=== PATIENT | male | born 1970 | race Caucasian/White ===

== ENCOUNTER → 2017-04-12 | Outpatient (CLI) | payer MEDICARE, MEDICAID ==
--- NOTE | 2017-04-12 15:00 | RADRPT ---
PROCEDURE: US Bilateral Upper Extremity Veins. CLINICAL INDICATION: Bilateral upper extremity swelling. Venous diameter for dialysis fistula plan nhan. TECHNIQUE: Multiple longitudinal and transverse images of the bilateral upper extremity venous sumi e was obtained with ernandez scale and color Doppler imaging. COMPARISON: None available FINDINGS: The subclavian veins, axillary, brachial, basilic, and cephalic veins are patent bilaterally. There is normal flow with augmentation and compressibility throughout. There is no thrombus or occlusion. Diameters are as follows: Right arm cephalic upper: 0.39 cm. Right arm cephalic mid: 0.35 cm. Right arm cephalic lower: 0.23 cm. Right forearm cephalic upper: 0.23 cm. Right forearm cephalic mid: 0.16 cm. Right forearm cephalic lower: 0.14 cm. Right arm basilic upper: 0.66 cm. Right arm basilic mid: 0.42 cm. Right arm basilic lower: 0.34 cm. Right forearm basilic upper: 0.23 cm. Right forearm basilic mid: 0.21 cm. Right forearm basilic lower: 0.60 cm. Left arm cephalic upper: 0.34 cm. Left arm cephalic mid: 0.20 cm. Left arm cephalic lower: 0.18 cm. Left forearm cephalic upper: 0.17 cm. Left forearm cephalic mid: 0.18 cm. Left forearm cephalic lower: Not visualized. Left arm basilic upper: 0.31 cm. Left arm basilic mid: 0.27 cm. Left arm basilic lower: 0.33 cm. Left forearm basilic upper: 0.20 cm. Left forearm basilic mid: 0.22 cm. Left forearm basilic lower: Not visualized. IMPRESSION: 1. Left forearm cephalic vein lower not visualized and left forearm basilic vein lower not visualiz ed. Otherwise normal venous system of the upper extremities. No evidence of thrombus or occlusion. 2. The diameter of the vessels as indicated above. RPTAT: QQ .Ron Lvein MD, Date Time Electronically viewed and signed by .Ron Levin MD, MD on 04/12/2017 15:00 .R/
== END | disposition home or self-care (01) ==
LOC: VAS 09:39
PROVIDERS: ATTEND Student in an Organized Health Care Education/Training Program
DX: N18.6 End stage renal disease (principal)
CPT/HCPCS: 93970

== ENCOUNTER → 2017-05-14 | Outpatient (CLI) | payer MEDICARE, MEDICAID ==
[2017-05-14 10:20] LABS: BASOPHILS % 0.6 % (0.0-2.0); EOSINOPHILS # 0.3 10^3/ul (0.0-0.5); EOSINOPHILS % 4.8 % (0.0-7.0); HEMATOCRIT 36.2 % (42.0-52.0); HEMOGLOBIN 12.3 g/dl (14.0-18.0); LYMPHOCYTES # 1.3 10^3/ul (0.8-2.9); LYMPHOCYTES % 19.7 % (15.0-51.0); MEAN CORPUSCULAR HEMOGLOBIN 30.8 pg (29.0-33.0); MEAN CORPUSCULAR VOLUME 90.5 fl (82.0-101.0); MEAN PLATELET VOLUME 9.6 fl (7.4-10.4); MONOCYTE # 0.4 10^3/ul (0.3-0.9); MONOCYTES % 6.2 % (0.0-11.0); NEUTROPHIL # 4.4 10^3/ul (1.6-7.5); NEUTROPHILS % 67.9 % (39.0-77.0); PLATELET COUNT 311 10^3/UL (140-415); RED CELL DISTRIBUTION WIDTH 11.9 % (11.5-14.5); WHITE BLOOD COUNT 6.5 10^3/ul (4.8-10.8)
[2017-05-14 10:28] LABS: ADD UMIC YES; UR ASCORBIC ACID NEGATIVE (NEGATIVE); UR BILIRUBIN (Dip) NEGATIVE (NEGATIVE); UR BLOOD (Dip) NEGATIVE (NEGATIVE); UR CLARITY CLEAR (CLEAR); UR COLOR STRAW (YELLOW); UR GLUCOSE (Dip) NEGATIVE (NEGATIVE); UR KETONES (Dip) NEGATIVE (NEGATIVE); UR LEUKOCYTE ESTERASE (Dip) 1+ Leu/ul (NEGATIVE); UR NITRITE (Dip) NEGATIVE (NEGATIVE); UR RBC 1 /HPF (0-5); UR SPECIFIC GRAVITY (Dip) 1.008 (1.003-1.030); UR TOTAL PROTEIN (Dip) 2+ mg/dl (NEGATIVE); UR UROBILINOGEN (Dip) NEGATIVE (NEGATIVE)
[2017-05-14 10:49] LABS: INR 0.97; PROTIME 12.9 Sec (12.2-14.2)
[2017-05-14 10:54] LABS: CREATININE 5.78 mg/dl (0.61-1.24); POTASSIUM 3.8 mmol/L (3.5-5.1)
[2017-05-14 11:16] LABS: PARTIAL THROMBOPLASTIN TIME 146.2 Sec (25.0-35.0)
--- NOTE | 2017-05-14 19:29 | RADRPT ---
Vent Rate: 73 bpm RR Interval: 0 msec VA Interval: 168 msec QRS Duration: 94 msec QT Interval: 404 msec QTC Interval: 445 msec P-R-T [place]: 38 - 82 - 79 degrees Normal sinus rhythm Normal ECG Electronically Signed By: Wagner Melendez [id number]
== END | disposition home or self-care (01) ==
LOC: LAB 09:20
PROVIDERS: ATTEND Student in an Organized Health Care Education/Training Program
DX: N18.6 End stage renal disease (principal)
CPT/HCPCS: 71010; 80048; 81001; 85025; 85610; 85730; 93005